=== PATIENT | female | born 1985 | race African-American/Black ===

== ENCOUNTER 2021-08-16 12:02 | Emergency (ER) | payer MEDICAID ==
[~2021-08-16] VITALS: Ht 175.3 cm; Wt 83.6 kg
[2021-08-16] MEDS ORDERED: IV NORMAL SALINE 1,000ML 1,000 ML IV ONE (13:45)
[2021-08-16] MEDS ORDERED: diphenhydrAMINE 50 MG/ML VIAL IVP ONE (13:45)
[2021-08-16] MEDS ORDERED: METOCLOPRAMIDE HCL 10 MG/2 ML VIAL. IVP ONE (13:45)
[2021-08-16] MEDS ORDERED: KETOROLAC 30 MG/ML VIAL. IVP ONE (13:45)
--- NOTE | 2021-08-16 14:04 | PHYS DOC ---
Adult General Chief Complaint Chief Complaint: OTHER COMPLAINTS HPI HPI Patient is a 36-year-old female presents to the emergency department chief complaint of migraine headache for the past 3 days. Patient denies thunderclap onset, reports this is a typical presentation of her normal migraines. Patient denies this being the worst headache of her life. Patient reports she is out of her home migraine medicines that seem to help the most, patient reports she would like a prescription for 10/325 mg hydrocodone. Patient also reports she is out of her blood pressure medication propanolol, hydrochlorothiazide, and Xanax, and Ativan. Patient states she has been unable to establish an appointment with her primary care physician to get her prescriptions refilled. Patient is requesting a refill of her prescriptions. Patient reports her last menstrual cycle ended 3 days ago with normal duration of flow. Patient denies dizziness, chest pains, shortness of breath. Patient denies of the physical complaints or physical concerns. (KELSEY MACIAS APRN) Review of Systems Review of Systems 14 body systems of review of systems have been reviewed. See HPI for pertinent positives and negative responses, otherwise all other systems are negative, nonpertinent or noncontributory. Constitutional: Negative except as outlined in HPI above. Skin: Negative except as outlined in HPI above. Eyes: Negative except as outlined in HPI above. HENT: Negative except as outlined in HPI above. Respiratory: Negative except as outlined in HPI above. Cardiovascular: Negative except as outlined in HPI above. GI: Negative except as outlined in HPI above. : Negative except as outlined in HPI above. Musculoskeletal: Negative except as outlined in HPI above. Integument: Negative except as outlined in HPI above. Neurologic: Negative except as outlined in HPI above. Endocrine: Negative except as outlined in HPI above. Lymphatic: Negative except as outlined in HPI above. Psychiatric: Negative except as outlined in HPI above. (KELSEY MACIAS APRN) Current Medications Current Medications Current Medications Medications (Trade) Dose Ordered Sig/Pat Start Time Stop Time Status Last Admin Dose Admin Diphenhydramine HCl (Benadryl) 25 mg 1X ONCE 08/16/21 13:45 08/16/21 13:49 DC Ketorolac Tromethamine (Toradol 30mg Vial) 30 mg 1X ONCE 08/16/21 13:45 08/16/21 13:49 DC Metoclopramide HCl (Reglan Vial) 10 mg 1X ONCE 08/16/21 13:45 08/16/21 13:49 DC Sodium Chloride 1,000 ml @ 1,000 mls/hr 1X ONCE 08/16/21 13:45 08/16/21 14:44 (KELSEY MACIAS APRN) Allergies Allergies Allergies Coded Allergies Type Severity Reaction Last Updated Verified tramadol Allergy Unknown 08/16/21 Yes (KELSEY MACIAS APRN) Physical Exam Physical Exam Constitutional: Well developed, well nourished, no acute distress, non-toxic appearance. 36-year-old female in no apparent distress. Patient's reported pain level exceeds patient's physical presentation and examination. HENT: Normocephalic, atraumatic. Eyes: Conjunctiva normal, no discharge. Neck: Normal range of motion, no stridor. Cardiovascular: No cyanosis appreciated, distal cap refill less than 2 seconds. Lungs & Thorax: Patient is in no respiratory distress, no audible adventitious lung sounds appreciated. Abdomen: Nontender, no abnormalities noted. Skin: Warm, dry, no erythema, no rash. Back: No tenderness, no deformities. Extremities: No tenderness, no cyanosis, no clubbing, ROM intact, no edema. Neurologic: Alert and oriented X 3, normal motor function, normal sensory function, no focal deficits noted. Psychologic: Affect normal, judgement normal, mood normal. (KELSEY MACIAS APRN) EKG EKG [] (KELSEY MACIAS APRN) Radiology/Procedures Radiology/Procedures [] (KELSEY MACIAS APRN) Heart Score C/O Chest Pain: No Risk Factors: Risk Factors: DM, Current or recent (<one month) smoker, HTN, HLP, family history of CAD, obesity. Risk Scores: Risk Factors: DM, Current or recent (<one month) smoker, HTN, HLP, family history of CAD, obesity. (KELSEY MACIAS APRN) Course & Med Decision Making Course & Med Decision Making Pertinent Labs and Imaging studies reviewed. (See chart for details) 36-year-old female, vital signs reviewed, presents to the emergency department concerning wanting a refill for [place] medication, Xanax, and Ativan. Patient a lso complains of a migraine headache. Patient's physical examination unremarkable. Will order headache cocktail. Will reevaluate after period of time. At 1345, patient's primary care ED nurse advised that patient has eloped from the emergency department. Diagnosis patient eloped. (KELSEY MACIAS APRN) Course & Med Decision Making I was the Attending physician on the above date of service of this patient. This patient was evaluated, examined, treated, and dispositioned from the emergency department by the mid-level practitioner. Although I was working at the time , no assistance was requested. Electronically signed, Conrado Bearden DO (CONRADO BEARDEN DO) Telma Disclaimer Dragon Disclaimer This electronic medical record was generated, in whole or in part, using a voice recognition dictation system. (KELSEY MACIAS APRN) Departure Departure: Impression: Primary Impression: Eloped from emergency department Disposition: 07 LEFT AWOL/ELOPED Referrals: PCP,NO (PCP) KELSEY MACIAS APRN Aug 16, 2021 14:04 CONRADO BEARDEN DO Aug 17, 2021 07:05
[2021-08-16 14:19] VITALS: BP 138/95
== END 2021-08-16 13:45 | disposition left against medical advice (07) ==
LOC: ER 12:02
DX: G43.909 Migraine, unspecified, not intractable, without status migrainosus (principal); Z88.6 Allergy status to analgesic agent
CPT/HCPCS: 99281

== ENCOUNTER 2021-08-22 02:47 | Emergency (ER) | payer MEDICAID ==
[~2021-08-22] VITALS: Ht 175.3 cm; Wt 84.2 kg
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
[2021-08-22] MEDS ORDERED: diphenhydrAMINE 50 MG/ML VIAL IVP ONE (03:30)
[2021-08-22] MEDS ORDERED: PROCHLORPERAZINE 10 MG/2 ML VIAL. IV ONE (03:30)
[2021-08-22] MEDS: IV RINGERS SOLUTION,LACTATED 1,000 ML IV SCH (03:30)
[2021-08-22] MEDS: oxyCODONE/APAP 5/325 1 TAB TABLET PO ONE (03:47)
--- NOTE | 2021-08-22 03:49 | RAD ---
CT HEAD AND C-SPINE WO History: Fall and headache. History of lupus, migraines. Comparison: CT head and cervical 01/26/2017. Technique: Noncontrast CT of the head and cervical spine. Findings: CT HEAD: There is no evidence for intracranial mass or hemorrhage. There is no hydrocephalus or midline shift. No abnormal extra-axial fluid collections are present. No evidence of acute territorial infarction. The visualized paranasal sinuses and mastoid air cells are clear. The skull and scalp are within normal limits. CT CERVICAL SPINE: There is no evidence for fracture in the cervical spine. Posterior fusion defect at C1 arch. Alignment is normal. Disc spaces are preserved. No destructive osseous lesions are seen. Limited evaluation of the soft tissues of the neck and of the upper chest is unremarkable. Impression: 1. No acute intracranial findings. 2. No acute osseous abnormality in the cervical spine. ------- Exposure: One or more of the following individualized dose reduction techniques were utilized for thi s examination: 1. Automated exposure control 2. Adjustment of the mA and/or kV according to patient size 3. Use of iterative reconstruction technique. Electronically signed by: Shantanu Leonard MD (08/22/2021 3:46 AM) [id number]
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
--- NOTE | 2021-08-22 04:27 | EKG ---
[address] [address] Test Date: 2021-08-22 Test Time: 04:13:11 Pat Name: CALVIN FINLEY Department: Room: Gender: F Adult Health Clinical Nurse Specialist: : 1985 Requested By: LUCY BETANCOUTR Order Number: [id number] Reading MD: Measurements Intervals [place] Rate: 63 P: 65 OK: 152 QRS: 61 QRSD: 86 T: 87 QT: 404 QTc: 416 Interpretive Statements SINUS RHYTHM OTHERWISE NORMAL ECG RI6.02 No previous ECG available for comparison
[2021-08-22] MEDS ORDERED: PROCHLORPERAZINE 10 MG/2 ML VIAL. IM ONE (04:30)
[2021-08-22] MEDS ORDERED: diphenhydrAMINE 50 MG/ML VIAL IM ONE (04:30)
[2021-08-22] MEDS: METOCLOPRAMIDE 10 MG TABLET PO ONE (05:42)
[2021-08-22] MEDS: diphenhydrAMINE HCL 25 MG CAPSULE PO ONE (05:42)
[2021-08-22 05:57] VITALS: BP 140/99
== END 2021-08-22 06:52 | disposition home or self-care (01) ==
LOC: ER 02:47
DX: G43.909 Migraine, unspecified, not intractable, without status migrainosus (principal); F41.9 Anxiety disorder, unspecified; F32.9 Major depressive disorder, single episode, unspecified; I10 Essential (primary) hypertension; Z88.6 Allergy status to analgesic agent
CPT/HCPCS: 70450; 71045; 72125; 93005; 99284; Q0163

== ENCOUNTER 2021-09-28 16:42 | Emergency (ER) | payer MEDICAID ==
[~2021-09-28] VITALS: Ht 175.3 cm; Wt 77.7 kg
--- NOTE | 2021-09-28 17:17 | EKG ---
[address] [address] Test Date: 2021-09-28 Test Time: 16:52:27 Pat Name: CALVIN FINLEY Department: Room: Gender: F Warehouse Receiver: VIJAY : 1985 Requested By: NATHAN CORTEZ Order Number: [id number] Reading MD: Garth Spear Measurements Intervals [place] Rate: 84 P: 67 IA: 138 QRS: 67 QRSD: 90 T: 90 QT: 350 QTc: 417 Interpretive Statements SINUS RHYTHM Electronically Signed On 10-02-2021 12:23:05 PACKING AND FINAL ASSEMBLY SUPERVISOR by Garth Spear
[2021-09-28] MEDS ORDERED: HYDR12.572 PO (17:21)
[2021-09-28] MEDS ORDERED: PROP40TA PO (17:21)
[2021-09-28] MEDS ORDERED: CYCL10TA19 PO (17:21)
[2021-09-28] MEDS ORDERED: GABA-586 PO (17:21)
[2021-09-28] MEDS ORDERED: PRED20TA PO (17:21)
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
[2021-09-28] MEDS ORDERED: predniSONE 20 MG TABLET PO ONE (17:45)
[2021-09-28] MEDS ORDERED: hydroCHLOROthiazide 25 MG TABLET. PO ONE (17:45)
[2021-09-28 17:49] VITALS: BP 143/100
[2021-09-28] MEDS ORDERED: PROPRANOLOL 10 MG TABLET. PO ONE (18:00)
== END 2021-09-28 17:50 | disposition home or self-care (01) ==
LOC: ER 16:42
DX: I10 Essential (primary) hypertension (principal); R00.2 Palpitations; F41.9 Anxiety disorder, unspecified; G43.909 Migraine, unspecified, not intractable, without status migrainosus; Z88.6 Allergy status to analgesic agent
CPT/HCPCS: 93005; 99284; J7512

== ENCOUNTER 2021-10-08 07:15 | Emergency (ER) | payer MEDICAID ==
[~2021-10-08] VITALS: Ht 175.3 cm; Wt 77.7 kg
[2021-10-08 07:15] VITALS: BP 134/67
[~2021-10-08 07:15] MED LIST: CYCL10TA19 PO; GABA-586 PO; HYDR12.572 PO; PRED20TA PO; PROP40TA PO
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
== END 2021-10-08 11:12 | disposition home or self-care (01) ==
LOC: ER 07:15
DX: F41.9 Anxiety disorder, unspecified (principal); F51.4 Sleep terrors [night terrors]; I10 Essential (primary) hypertension; G43.909 Migraine, unspecified, not intractable, without status migrainosus; Z88.6 Allergy status to analgesic agent
CPT/HCPCS: 99283

== ENCOUNTER 2021-10-27 15:00 | Emergency (ER) | payer MEDICAID ==
[~2021-10-27] VITALS: Ht 175.3 cm; Wt 77.7 kg
[2021-10-27 15:22] VITALS: BP 134/67
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
== END 2021-10-27 16:52 | disposition home or self-care (01) ==
LOC: ER 15:00
DX: Z71.1 Person with feared health complaint in whom no diagnosis is made (principal); F41.9 Anxiety disorder, unspecified; I10 Essential (primary) hypertension; G43.909 Migraine, unspecified, not intractable, without status migrainosus; Z88.6 Allergy status to analgesic agent
CPT/HCPCS: 99283

== ENCOUNTER 2021-11-01 11:07 | Emergency (ER) | payer MEDICAID ==
[~2021-11-01] VITALS: Ht 175.3 cm; Wt 79.0 kg
[2021-11-01 11:25] VITALS: BP 131/89
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
== END 2021-11-01 13:40 | disposition home or self-care (01) ==
LOC: ER 11:07
DX: Z71.1 Person with feared health complaint in whom no diagnosis is made (principal); F41.9 Anxiety disorder, unspecified; I10 Essential (primary) hypertension; G43.909 Migraine, unspecified, not intractable, without status migrainosus; Z88.6 Allergy status to analgesic agent
CPT/HCPCS: 99283

== ENCOUNTER 2021-11-29 14:02 | Emergency (ER) | payer MEDICAID ==
[~2021-11-29] VITALS: Ht 175.3 cm; Wt 79.0 kg
--- NOTE | 2021-11-29 14:06 | PHYS DOC ---
Past History Past Medical History: Anxiety, Hypertension, Migraines Additional Past Medical Histor: Lupus, HEART MURMUR Past Surgical History: , Tubal ligation Alcohol Use: Occasionally Adult General HPI HPI Patient is a 36 year old female who presents with suspicion of drinking bleach. On arrival to the ER, the patient is initially reluctant to answer any questions. She is currently in a crisis center locally and she was referred to this location after mentioning that she had drank some bleach. On arrival to the ER however she states she last drank bleach yesterday, prior to when she entered the crisis center. Today, she is upset stating that she is out of her medications. She has chronic debilitating illnesses including lupus and psychiatric disease and chronic pain. She is in the process of transitioning from one position to another and has pending follow-up appointment and about 3 weeks from now. In the ER, she is not suicidal. She states she did not drink bleach today. She did endorse threatening that she drank some yesterday. She has no pain, abdominal pain, GERD symptoms or other physical complaints. Today she is requesting refill of her medications to get through until her follow-up appointment. Some of her medications are controlled substances. Review of Systems Review of Systems Constitutional: Denies fever or chills Eyes: Denies change in visual acuity, redness, or eye pain HENT: Denies nasal congestion or sore throat Respiratory: Denies cough or shortness of breath Cardiovascular: No additional information not addressed in HPI GI: Denies abdominal pain, nausea, vomiting, bloody stools or diarrhea : Denies dysuria or hematuria Musculoskeletal: Chronic musculoskeletal pain Integument: Denies rash or skin lesions Neurologic: Denies headache, focal weakness or sensory changes Endocrine: Denies polyuria or polydipsia All other systems were reviewed and found to be within normal limits, except as documented in this note. Allergies Allergies Allergies Coded Allergies Type Severity Reaction Last Updated Verified tramadol Allergy Unknown 08/16/21 Yes Physical Exam Physical Exam Constitutional: Well developed, well nourished, no acute distress, non-toxic appearance HENT: bilateral external ears normal, oropharynx moist, no oral exudates, nose normal Eyes: PERRLA, EOMI, conjunctiva normal Neck: Normal range of motion, no tenderness, supple, no stridor. Cardiovascular:Heart rate regular rhythm, no murmur Lungs & Thorax: Bilateral breath sounds clear to auscultation Abdomen: Bowel sounds normal, soft Skin: Warm, dry, no erythema Back: No tenderness Extremities: Normal ROM Neurologic: Alert and oriented X 3, normal motor function Psychologic: Affect normal EKG EKG [] Radiology/Procedures Radiology/Procedures [] Heart Score C/O Chest Pain: No Risk Factors: Risk Factors: DM, Current or recent (<one month) smoker, HTN, HLP, family history of CAD, obesity. Risk Scores: Risk Factors: DM, Current or recent (<one month) smoker, HTN, HLP, family history of CAD, obesity. Course & Med Decision Making Course & Med Decision Making Pertinent Labs and Imaging studies reviewed. (See chart for details) Patient is evaluated on arrival to her room. She is emotionally distraught but has no physical complaints today. She did not drink bleach today. Even if she had, there is no acute work-up or indication for additional work-up as she has no symptoms. Her other complaints are being out of her pain medication and other medications. I informed that I would happily fill her normal baseline medications at least for 1 month supply until she has scheduled follow-up already. She is requesting multiple pain and anxiety medications which I was unwilling to fill for a 1 month supply. She was given blood pressure medications, a few Beltrami for pain, a few Xanax. And the rest of her normal noncontrolled substances were sent to the pharmacy. Patient is requesting to go back to the crisis center from where she came. She is stable for discharge from the ER and is medically cleared to return to that facility. She does not need additional work-up or admission today. Dragon Disclaimer Dragon Disclaimer This electronic medical record was generated, in whole or in part, using a voice recognition dictation system. Departure Departure: Impression: Primary Impression: Poor social situation Additional Impressions: Lupus Chronic pain Disposition: HOME / SELF CARE / HOMELESS Condition: GOOD Referrals: PCPALEJA (PCP) Patient Instructions: Chronic Pain Scripts Hydrocodone Bit/Acetaminophen (HYDROCODONE-APAP 5-325 ) 1 Each Tablet 1 TAB PO PRN Q6HRS PRN for PAIN, #12 TAB 0 Refills Prov: YONIS DICKSON FLOOR LAYER 11/29/21 Alprazolam (XANAX) 2 Mg Tablet 1 TAB PO TID for anxiety, #15 TAB 0 Refills Prov: YONIS DICKSON FLOOR LAYER 11/29/21 Zolpidem Tartrate (AMBIEN) 10 Mg Tablet 10 MG PO PRN QHS PRN for INSOMNIA, #10 TAB 0 Refills Prov: YONIS DICKSON FLOOR LAYER 11/29/21 Ferrous Gluconate (FERGON) 240 Mg Tablet 240 MG PO QD for 30 Days, #30 TAB Prov: NORTH WEEKS DO 11/29/21 Aspirin (ASPIRIN EC) 81 Mg Tablet.dr 1 TAB PO DAILY for 30 Days, #30 TAB 3 Refills Prov: NORTH WEEKS DO 11/29/21 Gabapentin (GABAPENTIN ) 300 Mg Capsule 300 MG PO TID for NEUROGENIC PAIN for 30 Days, #90 CAP Prov: NORTH WEEKS DO 11/29/21 Duloxetine Hcl (CYMBALTA) 20 Mg Capsule.dr 1 CAP PO DAILY, #30 CAP 0 Refills Prov: NORTH WEEKS DO 11/29/21 Prednisone (PREDNISONE) 20 Mg Tablet 1 TAB PO DAILY for 30 Days, #30 TAB Prov: NORTH WEEKS DO 11/29/21 Propranolol Hcl (PROPRANOLOL HCL) 20 Mg Tablet 1 TAB PO QD for 30 Days, #30 TAB 2 Refills Prov: NORTH WEEKS DO 11/29/21 Hydrochlorothiazide (Hydrochlorothiazide) 12.5 Mg Capsule 12.5 MG PO QD for 30 Days, #30 CAP Prov: NORTH WEEKS DO 11/29/21 Problem Qualifiers NORTH WEEKS DO Nov 29, 2021 14:06
[2021-11-29 14:11] VITALS: BP 129/91
[2021-11-29] MEDS ORDERED: ZOLP10TA PO ×2 (14:41→14:44)
[2021-11-29] MEDS ORDERED: PRED20TA PO (14:41)
[2021-11-29] MEDS ORDERED: ASPI-889 PO (14:41)
[2021-11-29] MEDS ORDERED: HYDR12.59 PO (14:41)
[2021-11-29] MEDS ORDERED: FERR240T PO (14:41)
[2021-11-29] MEDS ORDERED: PROP20TA PO (14:41)
[2021-11-29] MEDS ORDERED: DULO20CA50 PO (14:41)
[2021-11-29] MEDS ORDERED: GABA-586 PO (14:41)
[2021-11-29] MEDS ORDERED: ALPR2TAB2 PO (14:44)
[2021-11-29] MEDS ORDERED: HYDR-2155 PO (14:44)
== END 2021-11-29 15:15 | disposition home or self-care (01) ==
LOC: ER 14:02
DX: M32.9 Systemic lupus erythematosus, unspecified (principal); G89.29 Other chronic pain; Z76.0 Encounter for issue of repeat prescription; F41.9 Anxiety disorder, unspecified; I10 Essential (primary) hypertension; G43.909 Migraine, unspecified, not intractable, without status migrainosus; Z88.6 Allergy status to analgesic agent
CPT/HCPCS: 99281; 99283

== ENCOUNTER 2021-11-29 16:00 | Emergency (ER) | payer MEDICAID ==
[~2021-11-29] VITALS: Ht 175.3 cm; Wt 79.0 kg
[~2021-11-29 16:00] MED LIST changes: +ALPR2TAB2 PO; +ASPI-889 PO; +DULO20CA50 PO; +FERR240T PO; +HYDR-2155 PO; +HYDR12.59 PO; +PROP20TA PO; +ZOLP10TA PO
--- NOTE | 2021-11-29 16:06 | PHYS DOC ---
Past History Past Medical History: Anxiety, Hypertension, Migraines Additional Past Medical Histor: Lupus, HEART MURMUR Past Surgical History: , Tubal ligation Alcohol Use: Occasionally Adult General HPI HPI Patient is a 36 year old female who presents with threatening to ingest bleach. Review of Systems Review of Systems Constitutional: Denies fever or chills Eyes: Denies change in visual acuity, redness, or eye pain HENT: Denies nasal congestion or sore throat Respiratory: Denies cough or shortness of breath Cardiovascular: No additional information not addressed in HPI GI: Denies abdominal pain : Denies Musculoskeletal: Denies back pain or joint pain Integument: Denies rash or skin lesions Neurologic: Denies headache, focal weakness or sensory changes Endocrine: Denies polyuria or polydipsia All other systems were reviewed and found to be within normal limits, except as documented in this note. Allergies Allergies Allergies Coded Allergies Type Severity Reaction Last Updated Verified tramadol Allergy Unknown 08/16/21 Yes Physical Exam Physical Exam Constitutional: Well developed, well nourished, no acute distress, non-toxic appearance. HENT: Normocephalic, atraumatic, bilateral external ears normal, oropharynx moist, no oral exudates, nose normal. Eyes: PERRLA, EOMI, conjunctiva normal, no discharge. Neck: Normal range of motion, no tenderness, supple, no stridor. Cardiovascular:Heart rate regular rhythm, no murmur Lungs & Thorax: Bilateral breath sounds clear to auscultation Abdomen: Bowel sounds normal, soft, no tenderness, no masses, no pulsatile masses. Skin: Warm, dry, no erythema, no rash. Back: No tenderness, no CVA tenderness. Extremities: No tenderness, no cyanosis, no clubbing, ROM intact, no edema. Neurologic: Alert and oriented X 3, normal motor function, normal sensory function, no focal deficits noted. Psychologic: Labile mood and becomes agitated easily. Threatening to drink bleach and attempt at self-harm. EKG EKG 16:40: EKG completed and interpreted by ER physician. Normal sinus rhythm with rate of 101. Radiology/Procedures Radiology/Procedures [] Heart Score C/O Chest Pain: No Risk Factors: Risk Factors: DM, Current or recent (<one month) smoker, HTN, HLP, family history of CAD, obesity. Risk Scores: Risk Factors: DM, Current or recent (<one month) smoker, HTN, HLP, family history of CAD, obesity. Course & Med Decision Making Course & Med Decision Making Pertinent Labs and Imaging studies reviewed. (See chart for details) 16:00: Patient just discharged from the emergency department. Was referred here from crisis center for evaluation of bleach ingestion which is nontoxic. During the ER course, the patient was poorly cooperative. She denied however drinking bleach or even that she was going to drink bleach. She stated she drank some prior to her initial presentation but that she was not suicidal. Now she is in the waiting room waiting for a cab to take her back to the crisis center. She is on the phone with them stating that she plans on drinking more bleach. I spoke with crisis center staff who stated that patient told him that she was suicidal earlier today. She denied this earlier when she was initially evaluated. Patient will be readmitted to the emergency room and we will request psychiatric evaluation. Of note, we did refill all of her medications earlier, the medication she would normally be taking. Some of those were controlled substances. Currently, I am ordering that the controlled substance portion of those prescriptions are canceled. This patient is proving very unreliable in terms of history as well as with some sporadic behavior while she is in the waiting room. I will defer to her primary medical management team to fill her controlled substances. I will leave the noncontrolled substance for blood pressure and control of her lupus symptoms for her to pecan picker. Of note, patient was also at [facility] location in the ER yesterday with very similar presentation. Was screened and deemed stable for discharge with a safety plan. 17:00: Requesting pain medication for control of chronic pain in hands/arms /legs. Prednisone ordered. She was noted also to be specifically requesting opiate pain meds earlier today as well as at [facility] yesterday. During initial discharge planning from this ER, was requesting refill of "long-acting" pain meds as well as hydrocodone and oxycodone. She is currently calm and cooperative. UDS noted to be positive for THC and PCP. 17:35: Requesting additional pain medications. Tylenol ordered. 17:45: Patient acutely agitated. Continually requesting pain medication which I told her I would not give her. I informed her that her urine drug screen was positive for PCP. Patient begins to throw many allegations out at this point. Stating that we are not thinking of her because she is black. Stating that hospitals always throw her out and she is never able to get the care she needs. She has hx of prior similar presentations. Was cleared following mental health screen yesterday at [facility]. 18:00: PAT evaluation pending. LAMIN to Dr. Bran Hollis Disclaimer Telma Disclaimer This electronic medical record was generated, in whole or in part, using a voice recognition dictation system. Departure Departure: Impression: Primary Impression: PCP abuse Disposition: HOME / SELF CARE / HOMELESS Condition: STABLE Referrals: PCP,NO (PCP) Patient Instructions: Polysubstance Abuse NORTH WEEKS DO Nov 29, 2021 16:06
[2021-11-29 16:47] LABS: BASO % 1 % (0-3); EOS # 0.1 x10^3/uL (0.0-0.7); EOS % 3 % (0-3); HEMATOCRIT 32.5 % (36.0-47.0); HEMOGLOBIN 10.4 g/dL (12.0-15.5); LYMPH # 2.2 x10^3/uL (1.0-4.8); LYMPH % 47 % (24-48); MEAN CORPUSCULAR HEMOGLOBIN 23 pg (25-35); MEAN CORPUSCULAR HGB CONC 32 g/dL (31-37); MEAN CORPUSCULAR VOLUME 73 fL (79-100); MONO # 0.4 x10^3/uL (0.0-1.1); MONO % 9 % (0-9); NEUT # 1.9 x10^3uL (1.8-7.7); NEUT % 41 % (31-73); PLATELET COUNT 294 x10^3/uL (140-400); RED BLOOD COUNT 4.44 x10^6/uL (3.50-5.40); RED CELL DISTRIBUTION WIDTH 18.2 % (11.5-14.5); WHITE BLOOD COUNT 4.7 x10^3/uL (4.0-11.0)
--- NOTE | 2021-11-29 16:52 | EKG ---
[address] [address] Test Date: 2021-11-29 Test Time: 16:36:09 Pat Name: CALVIN FINLEY Department: Room: Gender: F Photographer Finish: JUANITA : 1985 Requested By: NORTH WEEKS Order Number: [id number] Reading MD: Measurements Intervals George Rate: 101 P: 80 GA: 140 QRS: 75 QRSD: 82 T: 79 QT: 352 QTc: 457 Interpretive Statements SINUS TACHYCARDIA BIATRIAL ENLARGEMENT ABNORMAL ECG RI6.01 No previous ECG available for comparison
[2021-11-29 16:55] LABS: BARBITURATES NEG (NEG); BENZODIAZEPINES NEG (NEG); CANNABINOIDS POS (NEG); COCAINE NEG (NEG); METHADONE NEG (NEG); OPIATES NEG (NEG); PHENCYCLIDINE POS (NEG)
[2021-11-29 16:56] LABS: AMPHETAMINE/METHAMPHETAMINE NEG (NEG); CALCIUM 8.7 mg/dL (8.5-10.1); CREATININE 0.7 mg/dL (0.6-1.0); GFR 113.3; POTASSIUM 4.1 mmol/L (3.5-5.1)
[2021-11-29 16:57] LABS: MAGNESIUM 2.1 mg/dL (1.8-2.4)
[2021-11-29] MEDS ORDERED: predniSONE 20 MG TABLET PO ONE (17:00)
[2021-11-29 17:05] LABS: CLARITY,URINE CLEAR; COLOR,URINE YELLOW; GLUCOSE,URINE NEG (NEG)
[2021-11-29 17:06] LABS: BACTERIA,URINE 0 /HPF (0-FEW); NITRITE,URINE NEG (NEG); RBC,URINE 0 /HPF (0-2); SQUAMOUS EPITHELIAL CELL,UR FEW /LPF; UROBILINOGEN,URINE 0.2 mg/dL (0.2 mg/dL); WBC,URINE 0 /HPF (0-4)
[2021-11-29] MEDS ORDERED: ACETAMINOPHEN 500 MG TABLET PO ONE (17:45)
[2021-11-29 19:37] VITALS: BP 145/81
== END 2021-11-29 19:35 | disposition home or self-care (01) ==
LOC: ER 16:00
DX: F16.10 Hallucinogen abuse, uncomplicated (principal); F41.9 Anxiety disorder, unspecified; I10 Essential (primary) hypertension; G43.909 Migraine, unspecified, not intractable, without status migrainosus; Z88.8 Allergy status to other drugs, medicaments and biological substances
CPT/HCPCS: 36415; 80048; 80307; 81001; 83735; 84443; 85025; 93005; 99284; J7512

== ENCOUNTER 2021-12-09 14:31 | Emergency (ER) | payer MEDICAID | END 2021-12-09 15:52 | disposition left against medical advice (07) | LOC: ER 14:31 | DX: M79.643 Pain in unspecified hand (principal); Z53.21 Procedure and treatment not carried out due to patient leaving prior to being seen by health care provider ==